=== PATIENT | male | born 1975 | race Asian ===

== ENCOUNTER 2023-05-02 01:34 | Emergency (ER) | payer BC ==
[~2023-05-02] VITALS: Ht 188 cm; Wt 104.3 kg
[2023-05-02 01:44] VITALS: TEMP 98.1
[2023-05-02 01:46] VITALS: BP 121/94; O2SAT 98
== END 2023-05-02 02:02 | disposition home or self-care (01) ==
LOC: ER 01:39
DX: Z71.1 Person with feared health complaint in whom no diagnosis is made (principal); I10 Essential (primary) hypertension; E78.00 Pure hypercholesterolemia, unspecified; E11.9 Type 2 diabetes mellitus without complications